=== PATIENT | female | born 1965 | race Caucasian/White ===

== ENCOUNTER 2022-07-02 17:43 | Inpatient (IN) | payer OTHER ==
[2022-07-02] MEDS ORDERED: Ondansetron PF 4 MG/2 ML Vial ONE (18:15)
[2022-07-02] MEDS ORDERED: Morphine 4 MG/ML VIAL ONE (18:15)
[2022-07-02 19:00] LABS: ALT (SGPT) 24 U/L (8-55); AST (SGOT) 28 U/L (5-34); Albumin 2.8 g/dL (3.5-5.0); Alkaline Phosphatase 168 U/L (40-110); Anion Gap 17 mmol/L (10-20); BUN (Urea Nitrogen) 15 mg/dL (9.8-20.1); Bilirubin, Total 0.4 mg/dL (0.2-1.2); Calc. Creatinine Clearance 0 mL/min (70-130); Calcium 8.7 mg/dL (7.8-10.44); Carbon Dioxide 28 mmol/L (22-29); Chloride 90 mmol/L (98-107); Estimated GFR 81; Globulin 6.1 g/dL (2.4-3.5); Glucose 206 mg/dL (70-105); Potassium 4.4 mmol/L (3.5-5.1); Protein, Total 8.9 g/dL (6.0-8.3); Sodium 131 mmol/L (136-145)
[2022-07-02 19:08] LABS: SARS-CoV-2 NAA Rapid Test Not Detected (NotDetected)
[2022-07-02 19:12] LABS: Hemoglobin 13.4 g/dL (12.0-15.5); Mean Corpuscular HGB CONC 33.8 g/dL (32.0-36.0); Mean Corpuscular Hemoglobin 29.3 pg (27.0-33.0); Mean Corpuscular Volume 86.7 fl (81.6-98.3); Mean Platelet Volume 11.5 fl (7.4-10.4); Platelet Count 126 10x3/uL (150-450); RBC Distribution Width 15.4 % (11.5-14.5); Red Blood Cell (RBC) Count 4.58 10x6/uL (3.90-5.03); White Blood Cell (WBC) Count 2.9 10x3/uL (3.5-10.5)
[2022-07-02] MEDS ORDERED: methylPREDNISolone Sod Succ 40 MG VIAL ONE (19:57)
[2022-07-02] MEDS ORDERED: Ketorolac Tromethamine 30 MG/ML VIAL ONE (19:57)
[2022-07-02 19:58] LABS: Band 13 % (5-11); Lymphocytes 12 % (21-51); Monocytes 20 % (0-10); Nucleated RBC 1 % (0)
[2022-07-02 19:59] LABS: Neutrophil 50 % (42-75)
[2022-07-02 20:00] LABS: Reactive Lymphocytes 5 % (0-10)
[2022-07-02] MEDS ORDERED: Oseltamivir 75 MG CAP PO SCH (20:00)
[2022-07-02 20:01] LABS: Large Platelets SLIGHT; Platelet Morphology Comment Appears Decreased; Toxic Granulation SLIGHT; Vacuoles SLIGHT
[2022-07-02 20:02] LABS: MDiff Complete? YES
[2022-07-02 20:03] LABS: RBC Morphology Normal
[2022-07-02] MEDS ORDERED: Senokot S 8.6-50 MG TAB PO PRN (20:47)
[2022-07-02] MEDS ORDERED: Dextrose 50% Abboject 50 ML SYRINGE SLOW IVP PRN (20:47)
[2022-07-02] MEDS ORDERED: Acetaminophen 325 MG TAB PO PRN (20:47)
[2022-07-02] MEDS ORDERED: Dextrose 5% in Water 1,000 ML IV PRN (20:47)
[2022-07-02] MEDS ORDERED: Melatonin 3 MG TAB PO PRN (20:47)
[2022-07-02 21:34] LABS: Magnesium 1.8 mg/dL (1.6-2.6)
[2022-07-02] MEDS ORDERED: guaiFENesin ER 600 MG TAB PO SCH (22:00)
[2022-07-02] MEDS ORDERED: Arformoterol 15 MCG/2 ML NEB NEB SCH (22:00)
[2022-07-02] MEDS ORDERED: Nicotine 14 MG PATCH ONE (22:10)
[2022-07-02] MEDS ORDERED: Famotidine 20 MG TAB PO SCH (22:15)
[2022-07-02] MEDS ORDERED: Famotidine 20 MG TAB ONE (22:18)
[2022-07-02] MEDS: HumaLOG 300 UNITS/3 ML VIAL SC PRN (22:21)
[2022-07-02] MEDS: Nicotine 14 MG PATCH TD SCH (22:22)
[2022-07-03] MEDS ORDERED: HYDROcodone/Acetaminophen 5/325 mg Tablet ONE (00:36)
[2022-07-03] MEDS ORDERED: methylPREDNISolone Sod Succ 40 MG VIAL ONE ×3 (00:36→11:56)
[2022-07-03] MEDS: methylPREDNISolone Sod Succ 40 MG VIAL IVP SCH ×5 (00:40→23:52)
[2022-07-03] MEDS: HYDROcodone/Acetaminophen 5/325 mg Tablet PO PRN ×2 (00:40→20:13)
[2022-07-03 04:29] LABS: Anion Gap 18 mmol/L (10-20); BUN (Urea Nitrogen) 16 mg/dL (9.8-20.1); Calc. Creatinine Clearance 0 mL/min (70-130); Calcium 8.7 mg/dL (7.8-10.44); Carbon Dioxide 28 mmol/L (22-29); Chloride 88 mmol/L (98-107); Estimated GFR 68; Glucose 290 mg/dL (70-105); Potassium 4.7 mmol/L (3.5-5.1); Sodium 129 mmol/L (136-145)
[2022-07-03 04:41] LABS: #Monocytes 0.2 10x3/uL (0.0-1.1); #Neutrophils 1.7 10x3/uL (1.5-8.4); %Basophils 0.4 % (0.0-2.0); %Lymphocytes 20.1 % (18.0-47.0); %Monocytes 6.4 % (0.0-10.0); %Neutrophils 72.7 % (40.0-75.0); Hemoglobin 12.9 g/dL (12.0-15.5); Mean Corpuscular HGB CONC 33.7 g/dL (32.0-36.0); Mean Corpuscular Hemoglobin 29.4 pg (27.0-33.0); Mean Corpuscular Volume 87.2 fl (81.6-98.3); Mean Platelet Volume 10.7 fl (7.4-10.4); Platelet Count 123 10x3/uL (150-450); RBC Distribution Width 15.3 % (11.5-14.5); Red Blood Cell (RBC) Count 4.39 10x6/uL (3.90-5.03); White Blood Cell (WBC) Count 2.3 10x3/uL (3.5-10.5)
[2022-07-03] MEDS: HumaLOG 300 UNITS/3 ML VIAL SC PRN ×4 (05:55→20:21)
[2022-07-03] MEDS: Arformoterol 15 MCG/2 ML NEB NEB SCH ×2 (07:25→19:30)
[2022-07-03] MEDS ORDERED: metFORMIN 500 MG TAB ONE (07:48)
[2022-07-03] MEDS: metFORMIN 500 MG TAB PO SCH ×2 (07:52→17:15)
[2022-07-03] MEDS ORDERED: Enoxaparin Sodium 40 MG/0.4 ML SYRINGE ONE (08:42)
[2022-07-03] MEDS ORDERED: Famotidine 20 MG TAB ONE (08:43)
[2022-07-03 08:53] LABS: Troponin I 0.011 ng/mL (< 0.028)
[2022-07-03] MEDS: Enoxaparin Sodium 40 MG/0.4 ML SYRINGE SC SCH (08:59)
[2022-07-03] MEDS: Famotidine 20 MG TAB PO SCH ×2 (09:00→20:13)
[2022-07-03] MEDS: Oseltamivir 75 MG CAP PO SCH ×2 (09:01→20:14)
[2022-07-03] MEDS: guaiFENesin ER 600 MG TAB PO SCH ×2 (09:01→20:14)
[2022-07-03 11:33] LABS: Troponin I Less than 0.010 ng/mL (< 0.028)
[2022-07-03] MEDS: Budesonide 0.5 MG/2 ML NEB NEB SCH ×2 (13:40→19:20)
[2022-07-03 14:00] VITALS: BMI 30.2
[2022-07-03 14:42] LABS: Troponin I Less than 0.010 ng/mL (< 0.028)
[2022-07-03] MEDS: Furosemide 40 MG TAB PO SCH (20:14)
[2022-07-03] MEDS: Nicotine 14 MG PATCH TD SCH (22:26)
[2022-07-04] MEDS: HYDROcodone/Acetaminophen 5/325 mg Tablet PO PRN (03:43)
[2022-07-04] MEDS: methylPREDNISolone Sod Succ 40 MG VIAL IVP SCH ×3 (05:43→17:07)
[2022-07-04] MEDS: HumaLOG 300 UNITS/3 ML VIAL SC PRN ×3 (05:55→17:07)
[2022-07-04] MEDS: Budesonide 0.5 MG/2 ML NEB NEB SCH (06:51)
[2022-07-04] MEDS: Arformoterol 15 MCG/2 ML NEB NEB SCH (07:05)
[2022-07-04] MEDS: Furosemide 40 MG TAB PO SCH (08:39)
[2022-07-04] MEDS: metFORMIN 500 MG TAB PO SCH ×2 (08:39→17:07)
[2022-07-04] MEDS: Oseltamivir 75 MG CAP PO SCH ×2 (08:39→18:19)
[2022-07-04] MEDS: guaiFENesin ER 600 MG TAB PO SCH ×2 (08:40→18:19)
[2022-07-04] MEDS: Famotidine 20 MG TAB PO SCH (08:40)
[2022-07-04] MEDS: Enoxaparin Sodium 40 MG/0.4 ML SYRINGE SC SCH (08:44)
[2022-07-04] MEDS ORDERED: Empagliflozin 25 MG TAB PO SCH (09:00)
[2022-07-04 15:50] VITALS: BP 174/84; TEMP 98.6
== END 2022-07-04 18:20 | disposition home or self-care (01) | DRG 191 ==
LOC: CSHERS 17:43 → INTOOBSV 21:44 → CSHERHOLD 21:44 → CSHTELE 07-03 12:37 → OBSVTOIN 07-04 11:09
PROVIDERS: ADMIT Family Medicine; ATTEND Family Medicine
DX: J44.1 Chronic obstructive pulmonary disease with (acute) exacerbation (principal); J45.901 Unspecified asthma with (acute) exacerbation; J10.1 Influenza due to other identified influenza virus with other respiratory manifestations; F17.210 Nicotine dependence, cigarettes, uncomplicated; I10 Essential (primary) hypertension; K21.9 Gastro-esophageal reflux disease without esophagitis; F31.9 Bipolar disorder, unspecified; E11.65 Type 2 diabetes mellitus with hyperglycemia; E78.00 Pure hypercholesterolemia, unspecified; Z20.822 Contact with and (suspected) exposure to COVID-19; Z88.0 Allergy status to penicillin; Z90.49 Acquired absence of other specified parts of digestive tract; Z90.710 Acquired absence of both cervix and uterus
CPT/HCPCS: 36415; 36416; 71045; 80048; 80053; 83735; 83880; 84484; 85025; 85379; 93005; 93306; 94640; 94760; J1650; J1815; J1885; J2270; J2405; J2920; J7620; J7626